=== PATIENT | female | born 1970 ===

== ENCOUNTER 2021-06-30 00:56 | Emergency (ER) | payer OTHER, SELFPAY ==
[2021-06-30 01:07] VITALS: BP 135/70; PULSE 81; RESP 20; TEMP 36.5; O2SAT 99; BMI 32.9
== END 2021-06-30 01:25 | disposition left against medical advice (07) ==
PROVIDERS: Emergency Provider Emergency Medicine; PCP Internal Medicine
DX: K08.89 Other specified disorders of teeth and supporting structures (principal); R51.9 Headache, unspecified
CPT/HCPCS: 99281; 99282

== ENCOUNTER 2021-06-30 01:52 | Emergency (ER) | payer OTHER, SELFPAY ==
[2021-06-30 02:09] VITALS: BP 135/70; PULSE 80; RESP 18; TEMP 36.5; O2SAT 99; BMI 32.9
== END 2021-06-30 04:38 | disposition left against medical advice (07) ==
PROVIDERS: Emergency Provider Emergency Medicine; PCP Internal Medicine
DX: K08.89 Other specified disorders of teeth and supporting structures (principal)
CPT/HCPCS: 99281; 99282